=== PATIENT | female | born 1950 | race Hispanic/Latino ===

== ENCOUNTER 2017-07-07 09:01 | Emergency (ER) | payer MEDICARE ==
[2017-07-07 09:26] LABS: BASOPHILS % (AUTO) 0.8 % (0.0-5.0); EOSINOPHILS % (AUTO) 2.6 % (0.0-8.0); HEMATOCRIT 34.9 % (36-48); LYMPHOCYTES % (AUTO) 41.9 % (21.0-51.0); MEAN CORPUSCULAR HEMOGLOBIN 29.5 pg (27.0-33.0); MEAN CORPUSCULAR HGB CONC 33.1 g/dL (32.0-36.0); MONOCYTES % (AUTO) 8.1 % (3.0-13.0); NEUTROPHILS % (AUTO) 46.6 % (40.0-77.0); PLATELET COUNT (AUTO) 255 K/uL (130-400); RED BLOOD CELL COUNT(AUTO) 3.91 MIL/uL (4.00-5.50); RED CELL DISTRIBUTION WIDTH 16.9 % (11.0-15.5); WHITE BLOOD COUNT (AUTO) 6.8 K/uL (4.8-10.8)
[2017-07-07 09:35] LABS: POTASSIUM 4.4 mmol/L (3.5-5.1)
[2017-07-07 09:52] LABS: ALBUMIN 3.3 g/dL (3.5-5.0); BILIRUBIN,TOTAL 0.4 mg/dL (0.2-1.0); CREATINE KINASE MB 0.6 ng/mL (0.5-3.6); TOTAL PROTEIN, SERUM 8.2 g/dL (6.0-8.3)
[2017-07-07] MEDS ORDERED: KETOROLAC TROMETHAMINE 15MG/ML ONE (11:34)
== END 2017-07-07 12:35 | disposition home or self-care (01) ==
LOC: EDH 09:01
DX: E11.9 Type 2 diabetes mellitus without complications (principal); R05 Cough; R07.9 Chest pain, unspecified; I10 Essential (primary) hypertension; I25.10 Atherosclerotic heart disease of native coronary artery without angina pectoris; E78.5 Hyperlipidemia, unspecified; Z95.1 Presence of aortocoronary bypass graft; Z88.5 Allergy status to narcotic agent
CPT/HCPCS: 36415; 71045; 80053; 82550; 82553; 84484; 85025; 87804 ×2; 93005; 96374; 99285; J1885

== ENCOUNTER 2017-11-20 11:56 | Emergency (ER) | payer MEDICARE ==
[2017-11-20 12:54] LABS: BASOPHILS % (AUTO) 0.3 % (0.0-5.0); EOSINOPHILS % (AUTO) 1.9 % (0.0-8.0); LYMPHOCYTES % (AUTO) 19.8 % (21.0-51.0); MEAN CORPUSCULAR HEMOGLOBIN 29.7 pg (27.0-33.0); MEAN CORPUSCULAR HGB CONC 33.9 g/dL (32.0-36.0); MEAN CORPUSCULAR VOLUME 87.4 fL (79-99); MONOCYTES % (AUTO) 11.4 % (3.0-13.0); NEUTROPHILS % (AUTO) 66.6 % (40.0-77.0); PLATELET COUNT (AUTO) 185 K/uL (130-400); RED CELL DISTRIBUTION WIDTH 14.2 % (11.0-15.5); WHITE BLOOD COUNT (AUTO) 10.7 K/uL (4.8-10.8)
[2017-11-20] MEDS ORDERED: IPRATROPIUM/ALBUTEROL SULFATE 3 ML SOLUTION IH ONE (12:55)
[2017-11-20 13:04] LABS: CREATININE 1.7 mg/dL (0.5-1.5); POTASSIUM 4.4 mmol/L (3.5-5.1)
[2017-11-20 13:09] LABS: ALBUMIN 2.8 g/dL (3.5-5.0); BILIRUBIN,TOTAL 0.4 mg/dL (0.2-1.0); TOTAL PROTEIN, SERUM 7.1 g/dL (6.0-8.3)
[2017-11-20 13:30] LABS: B-TYPE NATRIURETIC PEPTIDE 302 pg/mL (0-100)
[2017-11-20] MEDS ORDERED: AZITHROMYCIN 250 MG TABLET PO ONE (13:42)
[2017-11-20] MEDS ORDERED: FUROSEMIDE 10 MG/ML 4ML VIAL ONE (13:42)
[2017-11-20] MEDS ORDERED: CEFTRIAXONE SODIUM 1 GM ONE (13:42)
[2017-11-20] MEDS ORDERED: SODIUM CHLORIDE 0.9% 100 ML IV ONE (13:47)
== END 2017-11-20 15:03 | disposition home or self-care (01) ==
LOC: EDH 11:56
DX: J18.9 Pneumonia, unspecified organism (principal); E11.65 Type 2 diabetes mellitus with hyperglycemia; I11.0 Hypertensive heart disease with heart failure; I50.22 Chronic systolic (congestive) heart failure; E78.5 Hyperlipidemia, unspecified; I25.810 Atherosclerosis of coronary artery bypass graft(s) without angina pectoris; Z88.6 Allergy status to analgesic agent; Z95.1 Presence of aortocoronary bypass graft; Z79.899 Other long term (current) drug therapy
CPT/HCPCS: 36415; 71046; 80053; 82550; 83880; 84484; 85025; 87804 ×2; 93005; 94640; 96374; 96375; 99285; J0696; J1940

== ENCOUNTER 2019-10-17 22:37 | Inpatient (IN) | payer MEDICARE ==
[~2019-10-17] VITALS: Ht 154.9 cm; Wt 72.6 kg
[2019-10-17 23:20] LABS: BASOPHILS % (AUTO) 0.6 % (0.0-5.0); EOSINOPHILS % (AUTO) 1.8 % (0.0-8.0); HEMATOCRIT 34.2 % (36-48); LYMPHOCYTES % (AUTO) 19.8 % (21.0-51.0); MEAN CORPUSCULAR VOLUME 83.8 fL (79-99); MONOCYTES % (AUTO) 9.8 % (3.0-13.0); NEUTROPHILS % (AUTO) 64.5 % (40.0-77.0); PLATELET COUNT (AUTO) 156 K/uL (130-400); RED BLOOD CELL COUNT(AUTO) 4.08 MIL/uL (4.00-5.50); RED CELL DISTRIBUTION WIDTH 19.9 % (11.0-15.5); WHITE BLOOD COUNT (AUTO) 9.3 K/uL (4.8-10.8)
[2019-10-17 23:32] LABS: CREATININE 1.5 mg/dL (0.5-1.5); POTASSIUM 5.4 mmol/L (3.5-5.1)
[2019-10-17 23:33] LABS: INR 0.95 (0.85-1.15); PARTIAL THROMBOPLASTIN TIME 29.9 SEC (26.3-35.5); PROTHROMBIN TIME 10.3 SEC (9.6-11.6)
[2019-10-17] MEDS ORDERED: IPRATROPIUM/ALBUTEROL SULFATE 3 ML SOLUTION IH ONE (23:33)
[2019-10-17 23:36] LABS: ALBUMIN 3.8 g/dL (3.5-5.0); BILIRUBIN,TOTAL 0.2 mg/dL (0.2-1.0); TOTAL PROTEIN, SERUM 7.8 g/dL (6.0-8.3)
[2019-10-17] MEDS ORDERED: FUROSEMIDE 10 MG/ML 4ML VIAL ONE (23:42)
[2019-10-17] MEDS ORDERED: ASPIRIN 325 MG TABLET ONE (23:42)
[2019-10-17] MEDS ORDERED: NITROGLYCERIN 1GM/1 INCH PACKET TD ONE (23:43)
[2019-10-17 23:49] LABS: APPEARANCE,URINE Clear (CLEAR); BILIRUBIN,URINE Negative (NEGATIVE); COLOR,URINE Yellow (YELLOW); GLUCOSE, URINE (UA) Negative (NEGATIVE); KETONES,URINE Negative (NEGATIVE); LEUKOCYTE ESTERASE ,URINE Negative (NEGATIVE); NITRATE,URINE Negative (NEGATIVE); OCCULT BLOOD,URINE Negative (NEGATIVE); PH,URINE 5.5 (5.0-8.0); PROTEIN,URINE POS 2+ mg/dL (NEGATIVE); UROBILINOGEN,URINE 0.2 mg/dL (0.2-1.0)
[2019-10-17 23:54] LABS: B-TYPE NATRIURETIC PEPTIDE 861 pg/mL (0-100)
[2019-10-18 01:36] LABS: BACTERIA,URINE Rare /HPF (None Seen); RBC,URINE 0-1 /HPF (0-1); WBC,URINE 0-1 /HPF (0-1)
--- NOTE | 2019-10-18 09:18 | NUR ---
DCP: HOME Sw met with pt who lives with her Marco [phone]. Daughter Ofelia Zavala in [place] [phone] is ER Contact. Pt reports she has assistance with ADLS and home management from provider 25hrs a week thru [facility]. Pt has glucometer,walker and cane, n HH services. PCP is Dario Dubon and she uses [facility] for rx. transports as needed. Plan is home at id Addendum: 10/18/19 at 0921 by BIGG NEVAREZ Amended: Links added.
[2019-10-18] MEDS ORDERED: ASPIRIN 81MG TAB.CHEW ONE (10:06)
[2019-10-18] MEDS ORDERED: GLUCAGON 1MG KIT 1 MG ML IM PRN (10:30)
[2019-10-18] MEDS ORDERED: DEXTROSE 50%-WATER 50 ML DISP.SYRIN IV PRN (10:30)
[2019-10-18] MEDS ORDERED: METOPROLOL TARTRATE 25 MG TAB ONE ×2 (11:18→22:14)
[2019-10-18] MEDS ORDERED: ENOXAPARIN SODIUM 40 MG/0.4 ML SYRINGE SQ ONE (11:18)
[2019-10-18] MEDS: INSULIN R PO SS1 SQ SCH ×3 (11:30→21:00)
[2019-10-18 11:36] LABS: CREATINE KINASE, TOTAL 55 U/L (21-232); MYOGLOBIN 49 ng/mL (10-92); TROPONIN I < 0.04 ng/mL (0.00-0.06)
--- NOTE | 2019-10-18 15:25 | NUR ---
ATTEMPTED TO CALL PATIENT AND DAUGHTER FOR IA CM TO FOLLOW Addendum: 10/18/19 at 1526 by SHERRI GOODMAN RN CM Amended: Links added.
[2019-10-18 19:22] LABS: CREATINE KINASE, TOTAL 80 U/L (21-232); MYOGLOBIN 46 ng/mL (10-92); TROPONIN I < 0.04 ng/mL (0.00-0.06)
[2019-10-18 20:00] VITALS: BP 161/57
[2019-10-18] MEDS: METOPROLOL TARTRATE 25 MG TAB PO SCH (21:00)
--- NOTE | 2019-10-18 21:00 | NUR ---
pt states her meds were taken by her family
[2019-10-18] MEDS ORDERED: CEFTRIAXONE SODIUM 1 GM ONE (21:55)
[2019-10-18] MEDS ORDERED: FUROSEMIDE 10 MG/ML 4ML VIAL ONE (23:54)
[2019-10-19] VITALS: BP 166/59
[2019-10-19 04:00] VITALS: BP 165/70
[2019-10-19] MEDS: INSULIN R PO SS1 SQ SCH ×4 (06:31→20:51)
--- NOTE | 2019-10-19 07:02 | NUR ---
MORNING LABS SENT TO LAB
[2019-10-19 07:04] LABS: HEMATOCRIT 32.7 % (36-48); MEAN CORPUSCULAR HEMOGLOBIN 26.1 pg (27.0-33.0); MEAN CORPUSCULAR HGB CONC 31.5 g/dL (32.0-36.0); MEAN CORPUSCULAR VOLUME 82.8 fL (79-99); RED BLOOD CELL COUNT(AUTO) 3.95 MIL/uL (4.00-5.50); RED CELL DISTRIBUTION WIDTH 19.9 % (11.0-15.5); WHITE BLOOD COUNT (AUTO) 7.4 K/uL (4.8-10.8)
[2019-10-19 07:16] LABS: CREATININE 1.3 mg/dL (0.5-1.5); MAGNESIUM 1.5 mg/dL (1.80-2.40); POTASSIUM 4.3 mmol/L (3.5-5.1)
[2019-10-19] MEDS ORDERED: ASPIRIN 81MG TAB.CHEW PO SCH (09:00)
[2019-10-19] MEDS: METOPROLOL TARTRATE 25 MG TAB PO SCH ×2 (09:00→20:51)
[2019-10-19] MEDS ORDERED: ENOXAPARIN SODIUM 40 MG/0.4 ML SYRINGE SQ SCH (09:00)
[2019-10-19] MEDS ORDERED: FUROSEMIDE 10 MG/ML 4ML VIAL IVP SCH (09:00)
[2019-10-19] MEDS ORDERED: ONDANSETRON HCL 4 MG/2 ML VIAL ONE (10:21)
[2019-10-19] MEDS ORDERED: MAGNESIUM 2GM PREMIX 50ML 50 ML IV SCH (12:00)
[2019-10-19] MEDS ORDERED: FUROSEMIDE 10 MG/ML 4ML VIAL ONE (12:52)
[2019-10-19] MEDS ORDERED: ASPIRIN 81MG TAB.CHEW ONE (12:54)
[2019-10-19] MEDS ORDERED: ENOXAPARIN SODIUM 40 MG/0.4 ML SYRINGE SQ ONE (12:54)
[2019-10-19] MEDS ORDERED: MAGNESIUM 2GM PREMIX 50ML 50 ML IV ONE (12:54)
--- NOTE | 2019-10-19 13:30 | NUR ---
SPOKE WITH DR. WILLIASMON REGARDING CONSULT. UPDATED HIM WITH LABS. NO NEW ORDERS AT THIS TIME. STABLE.
[2019-10-19 14:00] VITALS: BP 139/68
[2019-10-19 19:50] VITALS: BP 93/59
[2019-10-19] MEDS ORDERED: ZOSYN 3.375GM+NS 50ML 50 ML IV ONE (20:39)
[2019-10-19] MEDS ORDERED: METOPROLOL TARTRATE 25 MG TAB ONE (20:39)
[2019-10-19] MEDS ORDERED: GABAPENTIN 100 MG CAPSULE ONE (20:40)
[2019-10-19] MEDS ORDERED: PANTOPRAZOLE SODIUM 40 MG TABLET.DR ONE (20:41)
[2019-10-19 21:30] VITALS: BP 81/46
[2019-10-19 22:25] VITALS: BP 91/52
--- NOTE | 2019-10-19 23:00 | NUR ---
STATUS UPDATE PT REMAIN ASYMPTOMATIC,REFUSES V/S TOTALLY UNCOOPERATIVE AT THIS TIME, AWAITING FOR NIJODY POWER AT THIS TIME, NO ACUTE DISTRESS OTHERWISE , KAIAWHINA KURA [place] MAORI AWARE OF BEHAVIORAL ISSUE OF PT. Addendum: 10/20/19 at 0017 by LARA GABRIEL RN RN Amended: Links added.
[2019-10-20 01:09] VITALS: BP 149/56
[2019-10-20] MEDS ORDERED: LACTULOSE 20 GM/30 ML UDCUP ONE (01:36)
[2019-10-20] MEDS ORDERED: LACTULOSE 20 GM/30 ML UDCUP PO SCH (01:45)
[2019-10-20 04:38] VITALS: BP 148/56
== END 2019-10-20 08:36 | disposition left against medical advice (07) | DRG 293 ==
LOC: EDH 22:37 → EDHIP 10-18 01:00
PROVIDERS: ADMIT Internal Medicine Infectious Disease; ATTEND Internal Medicine Infectious Disease
DX: I11.0 Hypertensive heart disease with heart failure (principal); E11.9 Type 2 diabetes mellitus without complications; I25.10 Atherosclerotic heart disease of native coronary artery without angina pectoris; I25.5 Ischemic cardiomyopathy; E78.5 Hyperlipidemia, unspecified; R53.81 Other malaise; R05 Cough; E83.42 Hypomagnesemia; Z53.29 Procedure and treatment not carried out because of patient's decision for other reasons; Z95.1 Presence of aortocoronary bypass graft; Z95.810 Presence of automatic (implantable) cardiac defibrillator; Z83.3 Family history of diabetes mellitus; I50.9 Heart failure, unspecified
CPT/HCPCS: 36415; 71045; 80048; 80053; 81001; 82550; 82948; 83605; 83735; 83874; 83880; 84484; 85025; 85027; 85610; 85730; 93005; 94640; 99291; G0378; J0696; J1650; J1940; J2405; J2543; J3475

== ENCOUNTER → 2020-09-02 | Outpatient (CLI) | payer MEDICARE | END | disposition home or self-care (01) | LOC: OIH 13:15 | PROVIDERS: ATTEND Internal Medicine | DX: M20.11 Hallux valgus (acquired), right foot (principal); M20.12 Hallux valgus (acquired), left foot; I70.202 Unspecified atherosclerosis of native arteries of extremities, left leg; M81.0 Age-related osteoporosis without current pathological fracture; M85.871 Other specified disorders of bone density and structure, right ankle and foot; M20.41 Other hammer toe(s) (acquired), right foot | CPT/HCPCS: 73630 ==

== ENCOUNTER 2022-12-24 07:37 | Emergency (ER) | payer MEDICARE ==
[~2022-12-24] VITALS: Ht 154.9 cm; Wt 63.5 kg
[2022-12-24 07:40] VITALS: BP 120/63; PULSE 71; RESP 18
[2022-12-24] MEDS ORDERED: OXYMETAZOLINE HCL SPRAY 15 ML BOTTLE ONE (08:03)
[2022-12-24 09:24] LABS: HEMATOCRIT 27.1 % (36-48); MEAN CORPUSCULAR HEMOGLOBIN 28.1 pg (27.0-33.0); MEAN CORPUSCULAR HGB CONC 31.4 g/dL (32.0-36.0); MEAN CORPUSCULAR VOLUME 89.4 fL (79-99); RED BLOOD CELL COUNT(AUTO) 3.03 MIL/uL (4.00-5.50); RED CELL DISTRIBUTION WIDTH 17.8 % (11.0-15.5); WHITE BLOOD COUNT (AUTO) 8.7 K/uL (4.8-10.8)
[2022-12-24 09:30] LABS: CREATININE 1.8 mg/dL (0.5-1.5); POTASSIUM 5.8 mmol/L (3.5-5.1)
[2022-12-24 09:40] LABS: INR 0.99 (0.85-1.15); PROTHROMBIN TIME 11.5 SEC (9.6-11.6)
[2022-12-24] MEDS ORDERED: INSULIN HUMULIN R 100 UNIT/ML 3ML IV ONE (10:30)
[2022-12-24] MEDS ORDERED: CALCIUM GLUC 1GM 1 GM in 0.9%NACL 100ML 100 ML IV ONE (10:30)
[2022-12-24] MEDS ORDERED: DEXTROSE 50%-WATER 25 GM/50 ML VIAL IV ONE (10:30)
[2022-12-24] MEDS ORDERED: DEXTROSE 50%-WATER 50 ML DISP.SYRIN IV ONE (10:48)
== END 2022-12-24 15:45 | disposition home or self-care (01) ==
LOC: EDH 07:37
DX: R04.0 Epistaxis (principal); E87.5 Hyperkalemia; I12.9 Hypertensive chronic kidney disease with stage 1 through stage 4 chronic kidney disease, or unspecified chronic kidney disease; E11.22 Type 2 diabetes mellitus with diabetic chronic kidney disease; N18.9 Chronic kidney disease, unspecified; E78.00 Pure hypercholesterolemia, unspecified; Z88.5 Allergy status to narcotic agent; Z95.1 Presence of aortocoronary bypass graft
CPT/HCPCS: 36415; 80048; 84132; 85027; 85610; 85730; 93005; 96365; 96375; J0610; J1815; J7070